=== PATIENT | female | born 1930 | race Caucasian/White ===

== ENCOUNTER 2016-06-19 08:59 | Emergency (ER) | payer MEDICARE, BC ==
[2014-09-06 13:22] VITALS: BMI 25.0
[~2016-06-19 08:59] MED LIST: CELEBREX200 MG PO; ED-SPAZ0.125 MG PO; FENOFIBRATE134 MG PO; IMODIUM2 MG PO; MULTIPLE VITAMI1 TA1 PO; NEURONTIN600 MG PO; NORVASC5 MG PO; PRILOSEC20 MG PO; ULTRAM50 MG PO; VASOTEC2.5 MG PO; VASOTEC5 MG; VASOTEC5 MG PO; VITAMIN D5000 UNIT PO
== END 2016-06-19 10:45 | disposition home or self-care (01) ==
LOC: D.ER 08:59
DX: S01.81XA Laceration without foreign body of other part of head, initial encounter (principal); W01.0XXA Fall on same level from slipping, tripping and stumbling without subsequent striking against object, initial encounter; Y93.89 Activity, other specified; Y92.019 Unspecified place in single-family (private) house as the place of occurrence of the external cause; S06.0X0A Concussion without loss of consciousness, initial encounter; I10 Essential (primary) hypertension

== ENCOUNTER 2016-07-07 14:33 | Inpatient (IN) | payer MEDICARE, BC ==
[~2016-07-07] VITALS: Ht 165.1 cm; Wt 52.7 kg
[2016-07-07 17:16] LABS: BASOPHILS 0.3 % (0-2); EOSINOPHILS 0.8 % (0-7); HEMATOCRIT 40.4 % (36.0-48.0); HEMOGLOBIN 12.7 g/dL (12-16); IMMATURE GRANULOCYTES 0.1 % (0-5); MCH 25.8 pg (26.0-34.0); MCHC 31.4 g/dL (31.0-37.0); MCV 82.1 fL (80.0-100.0); MEAN PLATELET VOLUME 9.4 fL (7.4-10.4); MONOCYTES 10.6 % (2-11); NEUTROPHILS 57.2 % (40-80); PLATELET COUNT 377 10x3/uL (130-400); RBC 4.92 10x6/uL (4.00-5.40); WBC 7.9 10x3/uL (4.8-10.8)
[2016-07-07] MEDS ORDERED: BAYER CHEWABLE81 MG PO (17:32)
[2016-07-07 17:33] VITALS: BP 135/84; Ht 165.1 cm; Wt 52.7 kg
[2016-07-07] MEDS ORDERED: ALEVE220 MG PO (17:38)
[2016-07-07] MEDS ORDERED: LOZOL1.25 MG PO (17:38)
[2016-07-07] MEDS ORDERED: LISINOPRIL5 MG PO (17:39)
[2016-07-07] MEDS ORDERED: TROSPIUM CHLORI60 MG PO (17:40)
[2016-07-07] MEDS ORDERED: K-TAB10 MEQ PO (17:41)
[2016-07-07] MEDS ORDERED: MELATONIN10 M1 PO (17:42)
[2016-07-07] MEDS ORDERED: PREMARIN45 GM VG (17:43)
[2016-07-07 17:51] LABS: ALBUMIN 4.1 g/dL (3.4-5.0); ANION GAP 12.6 mmol/L (8-16); BILIRUBIN - TOTAL 0.41 mg/dL (0.2-1.3); CALCIUM 9.8 mg/dL (8.5-10.1); CARBON DIOXIDE 27.9 mmol/L (21.0-32.0); POTASSIUM - SERUM 4.5 mmol/L (3.5-5.1); PROTEIN - SERUM 7.6 g/dL (6.4-8.2)
[2016-07-08] VITALS: BP 139/78
[2016-07-08 04:00] VITALS: BP 111/56
[2016-07-08 04:56] LABS: BASOPHILS 0.1 % (0-2); EOSINOPHILS 2.1 % (0-7); HEMATOCRIT 38.3 % (36.0-48.0); HEMOGLOBIN 12.2 g/dL (12-16); IMMATURE GRANULOCYTES 0.1 % (0-5); LYMPHOCYTES 31.3 % (15-50); MCH 25.7 pg (26.0-34.0); MCHC 31.9 g/dL (31.0-37.0); MCV 80.6 fL (80.0-100.0); MEAN PLATELET VOLUME 9.4 fL (7.4-10.4); MONOCYTES 12.3 % (2-11); NEUTROPHILS 54.1 % (40-80); PLATELET COUNT 384 10x3/uL (130-400); RBC 4.75 10x6/uL (4.00-5.40); RDW 14.1 % (11.5-14.5); WBC 7.5 10x3/uL (4.8-10.8)
[2016-07-08 05:20] LABS: ALBUMIN 3.6 g/dL (3.4-5.0); BILIRUBIN - TOTAL 0.38 mg/dL (0.2-1.3); CALCIUM 9.6 mg/dL (8.5-10.1); CARBON DIOXIDE 26.9 mmol/L (21.0-32.0); POTASSIUM - SERUM 3.9 mmol/L (3.5-5.1); PROTEIN - SERUM 7.3 g/dL (6.4-8.2)
[2016-07-08 08:02] VITALS: BP 146/69
[2016-07-08 12:28] VITALS: BP 147/84
[2016-07-08 15:59] VITALS: BP 124/60
[2016-07-08 19:00] VITALS: BP 102/69
[2016-07-09 04:00] VITALS: BP 119/61
[2016-07-09 08:17] VITALS: BP 117/53
[2016-07-09] MEDS ORDERED: DECADRON4 MG PO (10:10)
== END 2016-07-09 13:32 | disposition home or self-care (01) | DRG 87 ==
LOC: D.CT 14:33 → D.MS 16:17 → OBSVTIME 16:18 → D.MS 07-08 13:33
PROVIDERS: ADMIT Family Medicine
DX: S06.5X0A Traumatic subdural hemorrhage without loss of consciousness, initial encounter (principal); W19.XXXA Unspecified fall, initial encounter; I10 Essential (primary) hypertension; R51 Headache

== ENCOUNTER 2016-07-20 10:43 | Observation (INO) | payer MEDICARE, BC ==
[~2016-07-20] VITALS: Ht 165.1 cm; Wt 52.7 kg
[~2016-07-20 10:43] MED LIST changes: +ALEVE220 MG PO; +BAYER CHEWABLE81 MG PO; +DECADRON4 MG PO; +K-TAB10 MEQ PO; +LISINOPRIL5 MG PO; +LOZOL1.25 MG PO; +MELATONIN10 M1 PO; +PREMARIN45 GM VG; +TROSPIUM CHLORI60 MG PO
--- NOTE | 2016-07-20 12:25 | NUR ---
RECEIVED TO ROOM 2236 AT THIS TIME FROM 'S OFFICE VIA WHEELCHAIR. IV SITED TO PT'S LEFT HAND X3 ATTEMPTS. ASSESSMENT AND HISTORY OBTAINED PER FLOWSHEET. PT NPO AT THIS TIME UNTIL BUSINESS ACCOUNT LEADER ASSESSES PATIENT. ORIENTED PT TO ROOM AND CALL LIGHT. DENIES QUESTIONS OR CONCERNS. DENIES PAIN. ALERT AND ORIENTED X4. WILL CONTINUE WITH PLAN OF CARE.
[2016-07-20 13:13] VITALS: BP 175/89; Ht 165.1 cm; Wt 52.7 kg
--- NOTE | 2016-07-20 13:43 | NUR ---
IV ACCESS-20 GAUGE INSERTED IN LEFT HAND FOR ACCESS. AAYUSH BARRERA RN
[2016-07-20] MEDS ORDERED: MEDROL DOSE PACK4 MG PO (16:08)
--- NOTE | 2016-07-20 16:36 | NUR ---
DISCHARGE INSTRUCTIONS REVIEWED AND IV TO LEFT HAND D/C WITH CATH TIP INTACT. DENIES QUESTIONS REGARDING D/C PAPERWORK OR FOLLOW UP APPOINTMENTS. WILL D/C HOME WHEN SON COME TO PROVIDE A RIDE.
--- NOTE | 2016-07-20 16:40 | NUR ---
MEDROL DOSE PACK CALLED IN TO [facility], . SPOKE WITH YAW, PHARMACIST AT THIS TIME.
[2016-07-20 17:02] VITALS: BP 143/76
== END 2016-07-20 17:57 | disposition home or self-care (01) ==
LOC: D.CT 10:43 → D.MS 12:01 → OBSVTIME 12:02 → D.CT 15:30 → D.MS 17:57
PROVIDERS: ADMIT Family Medicine
DX: S06.5X0A Traumatic subdural hemorrhage without loss of consciousness, initial encounter (principal)

== ENCOUNTER → 2016-07-30 13:09 | Outpatient (CLI) | payer MEDICARE, BC ==
[2016-07-20 13:13] VITALS: BMI 19.3
[~2016-07-30 13:09] MED LIST changes: +MEDROL DOSE PACK4 MG PO
== END | disposition home or self-care (01) ==
LOC: D.CT 13:09
DX: S06.5X0A Traumatic subdural hemorrhage without loss of consciousness, initial encounter (principal)

== ENCOUNTER 2016-08-01 11:41 | Emergency (ER) | payer MEDICARE, BC ==
[2016-07-20 13:13] VITALS: BMI 19.3
== END 2016-08-01 13:51 | disposition home or self-care (01) ==
LOC: D.ER 11:41
DX: S06.5X0A Traumatic subdural hemorrhage without loss of consciousness, initial encounter (principal); X58.XXXA Exposure to other specified factors, initial encounter; Y93.89 Activity, other specified; Y92.89 Other specified places as the place of occurrence of the external cause; I10 Essential (primary) hypertension

== ENCOUNTER 2016-09-16 16:45 | Inpatient (IN) | payer MEDICARE, BC ==
[~2016-09-16] VITALS: Ht 165.1 cm; Wt 65.8 kg
[2016-09-16] MEDS ORDERED: BAYER CHEWABLE81 MG PO (17:12)
[2016-09-16] MEDS ORDERED: LISINOPRIL5 MG PO (17:13)
[2016-09-16] MEDS ORDERED: PRESERVISION AR1 CAP PO (17:15)
[2016-09-16] MEDS ORDERED: BIOTIN5 MG PO (17:15)
[2016-09-16] MEDS ORDERED: TYLENOL PM1 TAB PO (17:16)
[2016-09-16 17:17] VITALS: BP 136/63; BMI 24.1
--- NOTE | 2016-09-16 17:24 | NUR ---
PT ADMITTED TO FLOOR ALERT AND ORIENTED VS ARE WNL WITH EXCEPTION OF HR 111. PT IS REQUESTING TO BE A DNR. WILL GET DNR SHEET TO BE SIGNED BY DR CARRASCO.
[2016-09-16 17:55] LABS: BASOPHILS 0.2 % (0-2); EOSINOPHILS 0.4 % (0-7); HEMATOCRIT 41.5 % (36.0-48.0); HEMOGLOBIN 13.4 g/dL (12-16); LYMPHOCYTES 8.5 % (15-50); MCH 27.2 pg (26.0-34.0); MCHC 32.3 g/dL (31.0-37.0); MCV 84.2 fL (80.0-100.0); MEAN PLATELET VOLUME 8.9 fL (7.4-10.4); MONOCYTES 7.7 % (2-11); NEUTROPHILS 82.2 % (40-80); RBC 4.93 10x6/uL (4.00-5.40); WBC 12.5 10x3/uL (4.8-10.8)
[2016-09-16 18:04] LABS: PLATELET COUNT 158 10x3/uL (130-400)
--- NOTE | 2016-09-16 18:20 | NUR ---
ATTEMPTED TO SITE PT PIV X2 STICKS UNSUCCESSFUL. ONOFRE VALENTINO WILL ATTEMPT TO SITE
[2016-09-16 18:30] LABS: ALBUMIN 2.8 g/dL (3.4-5.0); ANION GAP 16.1 mmol/L (8-16); BILIRUBIN - TOTAL 0.3 mg/dL (0.2-1.3); CALCIUM 9.3 mg/dL (8.5-10.1); CARBON DIOXIDE 24.9 mmol/L (21.0-32.0); CREATININE - SERUM 0.9 mg/dL (0.6-1.3); PROTEIN - SERUM 6.4 g/dL (6.4-8.2)
--- NOTE | 2016-09-16 18:35 | NUR ---
ONOFRE SITED PT TO LEFT FA 22G X1 STICK. IV FLUIDS RUNNING WITHOUT ANY PROBLEMS
--- NOTE | 2016-09-16 20:39 | NUR ---
RESUMED CARE OF PT, LYING IN BED RESPIRATIONS EVEN AND UNLABORED ON ROOM AIR. LEFT FOREARM INFUSING NS @ 125. 92 SR ON TELEMETRY. 16 [place] CESAR INSERTED USING STERILE TECHNIQUE. 400CC OF DARK YELLOW URINE OUT. NO FURTHER NEEDS AT THIS TIME. CALL LIGHT IN REACH. SEE NURSE ASSESSMENT. WILL CONTINUE TO MONITOR.
[2016-09-16 21:13] LABS: APPEARANCE CLEAR (CLEAR); BILIRUBIN NEGATIVE (NEGATIVE); COLOR YELLOW (YELLOW); GLUCOSE NEGATIVE (NEGATIVE); KETONE NEGATIVE (NEGATIVE); LEUKOCYTE ESTERASE NEGATIVE (NEGATIVE); NITRITE NEGATIVE (NEGATIVE); PROTEIN NEGATIVE (NEGATIVE); UROBILINOGEN NORMAL (NORMAL)
[2016-09-16 21:14] LABS: BACTERIA FEW /hpf (NONE SEEN); EPITHELIAL CELLS OCC /hpf (0-5); RED CELLS - URINE 0-5 /hpf (0-5); WHITE CELLS - URINE OCC /hpf (0-5)
[2016-09-16 23:32] VITALS: BP 100/57
--- NOTE | 2016-09-17 01:34 | NUR ---
CALL LIGHT IN REACH, WILL CONTINUE WITH PLAN OF CARE.
[2016-09-17 05:19] LABS: BASOPHILS 0.1 % (0-2); EOSINOPHILS 0.7 % (0-7); HEMATOCRIT 36.3 % (36.0-48.0); HEMOGLOBIN 11.5 g/dL (12-16); IMMATURE GRANULOCYTES 0.9 % (0-5); LYMPHOCYTES 12.1 % (15-50); MCH 26.6 pg (26.0-34.0); MCHC 31.7 g/dL (31.0-37.0); MCV 83.8 fL (80.0-100.0); MEAN PLATELET VOLUME 9.2 fL (7.4-10.4); MONOCYTES 8.5 % (2-11); NEUTROPHILS 77.7 % (40-80); PLATELET COUNT 181 10x3/uL (130-400); RBC 4.33 10x6/uL (4.00-5.40); WBC 10.6 10x3/uL (4.8-10.8)
[2016-09-17 05:49] LABS: ALBUMIN 2.1 g/dL (3.4-5.0); ALKALINE PHOSPHATASE 65 U/L (46-116); ALT (SGPT) 19 U/L (10-68); BILIRUBIN - TOTAL 0.45 mg/dL (0.2-1.3); CALC OSMOLALITY 260 mosm/kg (275-300); CALCIUM 8.2 mg/dL (8.5-10.1); CARBON DIOXIDE 30.5 mmol/L (21.0-32.0); CHLORIDE - SERUM 95 mmol/L (98-107); CREATININE - SERUM 0.7 mg/dL (0.6-1.3); GLUCOSE 100 mg/dL (74-106); MAGNESIUM - SERUM 1.5 mg/dL (1.8-2.4); PHOSPHOROUS 2.4 mg/dL (2.5-4.9); POTASSIUM - SERUM 4.2 mmol/L (3.5-5.1); PROTEIN - SERUM 5.9 g/dL (6.4-8.2); SODIUM 130 mmol/L (136-145); eGFR NON AFRICAN AMERICAN 84 mL/min (90-120)
[2016-09-17 05:50] LABS: UREA NITROGEN 13 mg/dL (7-18)
[2016-09-17 06:24] VITALS: BP 138/73
--- NOTE | 2016-09-17 07:30 | NUR ---
RECEIVED PT IN BED AAOX4 RESP UNLABORED NAD NOTED
[2016-09-17 08:00] VITALS: BP 121/62
[2016-09-17 12:00] VITALS: BP 135/62
--- NOTE | 2016-09-17 14:00 | NUR ---
PT REFUSED SCDs AT THIS TIME
[2016-09-17 16:00] VITALS: BP 107/57
[2016-09-17 20:00] VITALS: BP 115/58
--- NOTE | 2016-09-17 20:13 | NUR ---
RESUMED CARE OF PT, LYING IN BED RESPIRATIONS EVEN AND UNLABORED ON ROOM AIR. [address] ST ON TELEMETRY. LEFT FOREARM INFUSING NS @ 125. CESAR TO GRAVITY. NO NEEDS VOICED AT THIS TIME. WILL CONTINUE TO MONITOR. SEE NURSE ASSESSMENT. CALL LIGHT IN REACH.
[2016-09-18] VITALS: BP 119/60
[2016-09-18 04:00] VITALS: BP 126/63
--- NOTE | 2016-09-18 04:52 | NUR ---
EXECUTIVE WELLNESS PROGRAMS DIRECTOR AT BEDSIDE TO OBTAIN VITALS, CALL LIGHT IN REACH. WILL CONTINUE WITH PLAN OF CARE.
[2016-09-18 04:57] LABS: BASOPHILS 0.2 % (0-2); EOSINOPHILS 0.6 % (0-7); HEMATOCRIT 34.8 % (36.0-48.0); IMMATURE GRANULOCYTES 0.8 % (0-5); LYMPHOCYTES 12.6 % (15-50); MCH 26.6 pg (26.0-34.0); MCHC 31.6 g/dL (31.0-37.0); MCV 84.1 fL (80.0-100.0); MEAN PLATELET VOLUME 8.9 fL (7.4-10.4); MONOCYTES 9.8 % (2-11); PLATELET COUNT 176 10x3/uL (130-400); RBC 4.14 10x6/uL (4.00-5.40); RDW 17.2 % (11.5-14.5); WBC 11.9 10x3/uL (4.8-10.8)
[2016-09-18 05:08] LABS: ALBUMIN 1.9 g/dL (3.4-5.0); ALKALINE PHOSPHATASE 65 U/L (46-116); ALT (SGPT) 16 U/L (10-68); BILIRUBIN - TOTAL 0.49 mg/dL (0.2-1.3); CALC OSMOLALITY 264 mosm/kg (275-300); CALCIUM 7.9 mg/dL (8.5-10.1); CARBON DIOXIDE 26.9 mmol/L (21.0-32.0); CHLORIDE - SERUM 98 mmol/L (98-107); CREATININE - SERUM 0.7 mg/dL (0.6-1.3); GLUCOSE 115 mg/dL (74-106); POTASSIUM - SERUM 3.9 mmol/L (3.5-5.1); PROTEIN - SERUM 5.1 g/dL (6.4-8.2); SODIUM 132 mmol/L (136-145); UREA NITROGEN 10 mg/dL (7-18); eGFR NON AFRICAN AMERICAN 84 mL/min (90-120)
--- NOTE | 2016-09-18 07:30 | NUR ---
DR CARRASCO HERE TO SEE PT AAOX4 RESP UNLABORED NAD NOTED
[2016-09-18 08:07] VITALS: BP 122/65
--- NOTE | 2016-09-18 10:13 | NUR ---
Patient Name: DILLON DUKES Admission Status: Urgent Accout number: [id number] Admission Date: 09-16-2016 : 1930 Admission Diagnosis: Attending: SERJIO Current LOS: 2 Anticipated DC Date: 09-19-2016 Planned Disposition: [facility] Facility Primary Insurance: MEDICARE A & B Discharge Planning Comments: CM MET WITH PATIENT TO DISCUSS DISCHARGE PLANNING NEEDS. IT WAS EXPLAINED TO THE PATIENT THAT DR CARRASCO HAD PUT IN AN ORDER TO SEE ABOUT GETTING THE PATIENT INTO [facility], PER HER CHOICE. SHE HAS AGREED WITH THIS. SHE STATED THAT SHE RESIDES AT [facility] WITH HER SPOUSE AND IS PLANNING TO RETURN THERE WHEN SHE IS STRONGER. SE STATED THAT SHE HAS A 3 WHEEL WALKER AT HOME, BUT NO OTHER EQUIPMENT. SHE STATE THAT HER HAS SEVERAL PIECES OF EQUIPMENT, INCLUDING OXYGEN. PT IS SOB WHILE ASSESSMENT IS BEING COMPLETED AND REQUIRING OXYGEN DURING HER STAY HERE, WILL FOLLOW AND SEE IF SHE WILL NEED A WALK TEST BEFORE DISCHARGE. PATIENT DENIES ANY FURTHER NEEDS. CM WILL CONTINUE TO FOLLOW. Fiberglass Finisher: Neena Durán Appended by Neena Durán on 09/18/2016 10:24: SPOKE WITH TIA WITH [facility]. INFORMATION FAXED. WILL WAIT FOR RETURN CALL IN REGARDS TO ACCEPTANCE. PER DR CARRASCO'S REQUEST, I ASKED IF THEY WOULD DO AN ADMISSION ON WEDNESDAY. SHE STATED THAT THEY PREFER NOT TO , BUT WILL IF THEY NEED TO. THIS WILL BE RELAYED TO DR CARRASCO. Is the patient Alert and Oriented? Yes * How many steps to enter\exit or inside your home? 0 * PCP DR CARRASCO * Pharmacy [facility] * Preadmission Environment Home with Family * Equipment Walker * List name and contact numbers for known caregivers / representatives who currently or will assist patient after discharge: CARSON KRISTEN DUKES, SPOUSE, ANATOLIY DUKES, SON, . * Additional services required to return to the preadmission environment? Yes * Can the patient safely return to the preadmission environment? No * Has this patient been hospitalized within the prior 30 days at any hospital? No
--- NOTE | 2016-09-18 11:25 | NUR ---
HAVE SPOKE WITH TIA AT [facility]. THE PATIENT HAS BEEN ACCEPTD FOR ADMISSION. SHE STATED THAT THEY COULD TAKE HER OVER THE WEEKEND LONG THEY CAN RECEIVE HER IN THE MORNING. THIS INFORMATION HAS BEEN RELAYED TO THE PATIENT AND WILL LET DR CARRASCO KNOW.
[2016-09-18 12:06] VITALS: BP 129/62
[2016-09-18 13:41] VITALS: Ht 165.1 cm; Wt 65.8 kg
[2016-09-18 14:44] VITALS: BP 130/64
[2016-09-18 20:00] VITALS: BP 132/64
[2016-09-19] VITALS: BP 100/61
[2016-09-19 04:00] VITALS: BP 129/59
[2016-09-19 05:32] LABS: BASOPHILS 0.1 % (0-2); EOSINOPHILS 0.9 % (0-7); HEMATOCRIT 34.4 % (36.0-48.0); IMMATURE GRANULOCYTES 0.5 % (0-5); LYMPHOCYTES 11.4 % (15-50); MCH 26.7 pg (26.0-34.0); MCV 83.5 fL (80.0-100.0); MEAN PLATELET VOLUME 9.3 fL (7.4-10.4); MONOCYTES 9.2 % (2-11); NEUTROPHILS 77.9 % (40-80); RBC 4.12 10x6/uL (4.00-5.40); RDW 16.8 % (11.5-14.5); WBC 13.1 10x3/uL (4.8-10.8)
[2016-09-19 05:40] LABS: PLATELET COUNT 222 10x3/uL (130-400)
[2016-09-19 05:48] LABS: ALBUMIN 1.9 g/dL (3.4-5.0); ALKALINE PHOSPHATASE 80 U/L (46-116); ALT (SGPT) 17 U/L (10-68); CALC OSMOLALITY 256 mosm/kg (275-300); CALCIUM 8.6 mg/dL (8.5-10.1); CHLORIDE - SERUM 95 mmol/L (98-107); CREATININE - SERUM 0.6 mg/dL (0.6-1.3); GLUCOSE 110 mg/dL (74-106); POTASSIUM - SERUM 4.1 mmol/L (3.5-5.1); PROTEIN - SERUM 5.8 g/dL (6.4-8.2); SODIUM 128 mmol/L (136-145); UREA NITROGEN 9 mg/dL (7-18); eGFR NON AFRICAN AMERICAN > 90 mL/min (90-120)
[2016-09-19 08:10] VITALS: BP 115/69
--- NOTE | 2016-09-19 09:35 | NUR ---
TELEMETRY SR. RESP UL ON 2L NC. IV PATENT. CALL LIGHT IN REACH. WILL CONT. PLAN OF CARE.
--- NOTE | 2016-09-19 10:27 | NUR ---
UP TO CHAIR WITH PHYSICIAN ASSIST.
[2016-09-19 11:27] VITALS: BP 143/73
--- NOTE | 2016-09-19 12:49 | NUR ---
URINE SPECIMEN COLLECTED AND TAKEN TO [place] FOR UA. WILL MONITOR.
[2016-09-19 13:20] LABS: APPEARANCE CLEAR (CLEAR); BILIRUBIN NEGATIVE (NEGATIVE); COLOR YELLOW (YELLOW); GLUCOSE NEGATIVE (NEGATIVE); KETONE NEGATIVE (NEGATIVE); LEUKOCYTE ESTERASE TRACE (NEGATIVE); NITRITE NEGATIVE (NEGATIVE); PH 5.5 (5.0-6.0); PROTEIN NEGATIVE (NEGATIVE); SPECIFIC GRAVITY 1.015 (1.005-1.020); UROBILINOGEN NORMAL (NORMAL)
[2016-09-19 13:25] LABS: BACTERIA FEW /hpf (NONE SEEN); EPITHELIAL CELLS OCC /hpf (0-5); RED CELLS - URINE 0-5 /hpf (0-5); URIC ACID CRYSTALS OCC /hpf (NONE SEEN); WHITE CELLS - URINE 0-5 /hpf (0-5)
--- NOTE | 2016-09-19 13:44 | NUR ---
AMBULATES HALLWAY WITH PT ASSIST.
[2016-09-19 15:16] VITALS: BP 140/63
[2016-09-19 20:00] VITALS: BP 121/57
--- NOTE | 2016-09-19 22:14 | NUR ---
PT RESTING WELL WITHOUT C/O OR DISTRESS NOTED. DAUGHTER IN ROOM WITH PT AT THIS TIME. CALL LIGHT WITHIN REACH. WILL MONITOR.
[2016-09-20] VITALS: BP 121/73
--- NOTE | 2016-09-20 03:30 | NUR ---
PT RESTING WELL WITHOUT C/O OR DISTRESS NOTED. CALL LIGHT WITHIN REACH.
[2016-09-20 04:00] VITALS: BP 120/65
[2016-09-20 05:13] LABS: BASOPHILS 0.1 % (0-2); EOSINOPHILS 0.8 % (0-7); HEMATOCRIT 32.7 % (36.0-48.0); HEMOGLOBIN 10.5 g/dL (12-16); IMMATURE GRANULOCYTES 0.7 % (0-5); MCH 26.6 pg (26.0-34.0); MCHC 32.1 g/dL (31.0-37.0); MCV 82.8 fL (80.0-100.0); MEAN PLATELET VOLUME 9.7 fL (7.4-10.4); MONOCYTES 9.3 % (2-11); NEUTROPHILS 79.1 % (40-80); PLATELET COUNT 214 10x3/uL (130-400); RBC 3.95 10x6/uL (4.00-5.40); RDW 16.6 % (11.5-14.5); WBC 11.9 10x3/uL (4.8-10.8)
[2016-09-20 05:33] LABS: ALBUMIN 1.6 g/dL (3.4-5.0); ALKALINE PHOSPHATASE 87 U/L (46-116); ALT (SGPT) 17 U/L (10-68); BILIRUBIN - DIRECT 0.07 mg/dL (0.00-0.30); BILIRUBIN - INDIRECT 0.38 mg/dL (0.00-1.00); BILIRUBIN - TOTAL 0.45 mg/dL (0.2-1.3); CALC OSMOLALITY 258 mosm/kg (275-300); CALCIUM 7.8 mg/dL (8.5-10.1); CARBON DIOXIDE 26.3 mmol/L (21.0-32.0); CHLORIDE - SERUM 96 mmol/L (98-107); CREATININE - SERUM 0.5 mg/dL (0.6-1.3); GLUCOSE 103 mg/dL (74-106); POTASSIUM - SERUM 4.1 mmol/L (3.5-5.1); SODIUM 130 mmol/L (136-145); UREA NITROGEN 8 mg/dL (7-18); eGFR NON AFRICAN AMERICAN > 90 mL/min (90-120)
--- NOTE | 2016-09-20 08:02 | NUR ---
US ABD DONE AT BS.
[2016-09-20 08:16] VITALS: BP 129/64
--- NOTE | 2016-09-20 10:29 | NUR ---
AMBULATES HALLWAY WITH PT ASSIST.
[2016-09-20 11:59] VITALS: BP 144/72
--- NOTE | 2016-09-20 14:30 | NUR ---
20 GAUGE IV INSTERTED PER MD ORDERS TO RIGHT AC X1 STICK. 10ML NS FLUSHED PT TOLERATED WELL. LEFT FOREARM IV DC'D CATHETER TIP INTACT, PT TOLERATED WELL. HARMONY RN ROBERT INSTRUCTOR PRESENT
[2016-09-20 16:05] VITALS: BP 129/72
[2016-09-20 19:00] VITALS: BP 147/78
--- NOTE | 2016-09-20 19:33 | NUR ---
RESUMED CARE OF PT, UP IN RECLINER RESPIRATIONS EVEN AND UNLABORED ON 2LPM VIA NC. [address] ON TELEMETRY. LEFT AC INFUSING NS @ 125. CESAR TO GRAVITY. CALL LIGHT IN REACH. SEE NURSE ASSESSMENT. WILL CONTINUE TO MONITOR.
--- NOTE | 2016-09-21 01:05 | NUR ---
CALL LIGHT IN REACH, WILL CONTINUE WITH PLAN OF CARE.
[2016-09-21 04:00] VITALS: BP 125/62
[2016-09-21 05:36] LABS: BASOPHILS 0.1 % (0-2); EOSINOPHILS 1.2 % (0-7); HEMATOCRIT 30.3 % (36.0-48.0); HEMOGLOBIN 9.9 g/dL (12-16); IMMATURE GRANULOCYTES 0.8 % (0-5); MCHC 32.7 g/dL (31.0-37.0); MCV 82.8 fL (80.0-100.0); MEAN PLATELET VOLUME 8.7 fL (7.4-10.4); MONOCYTES 8.1 % (2-11); NEUTROPHILS 79.8 % (40-80); PLATELET COUNT 246 10x3/uL (130-400); RBC 3.66 10x6/uL (4.00-5.40); RDW 16.6 % (11.5-14.5); WBC 9.7 10x3/uL (4.8-10.8)
[2016-09-21 05:55] LABS: CALC OSMOLALITY 259 mosm/kg (275-300); CALCIUM 8.1 mg/dL (8.5-10.1); CARBON DIOXIDE 27.2 mmol/L (21.0-32.0); CHLORIDE - SERUM 97 mmol/L (98-107); CREATININE - SERUM 0.5 mg/dL (0.6-1.3); GLUCOSE 118 mg/dL (74-106); POTASSIUM - SERUM 3.6 mmol/L (3.5-5.1); SODIUM 130 mmol/L (136-145); UREA NITROGEN 8 mg/dL (7-18); eGFR NON AFRICAN AMERICAN > 90 mL/min (90-120)
--- NOTE | 2016-09-21 06:29 | NUR ---
NO CHANGES FROM PREVIOUS ASSESSMENT, ASSISSTED ONTO BEDPAN. 92 SR ON TELEMETRY
--- NOTE | 2016-09-21 07:30 | NUR ---
RECEIVED PT IN BED AAOX4 GENERALIZED WEAKNESS NOTED RESP UNLABORED PT DENIES ANY NEEDS AT THIS TIME
[2016-09-21] MEDS ORDERED: OMNICEF300 MG PO (07:51)
[2016-09-21 08:00] VITALS: BP 154/74
--- NOTE | 2016-09-21 08:07 | NUR ---
PATIENT WITH DISCHARGE ORDERS TODAY. SPOKE WITH MARY AT [facility]. SHE STATED SHE WILL BE THE ONE TO CALL REPORT TO AT [phone]. SHE ALSO STATED THAT TRANSPORT WILL BE HER AROUND 1200 TO PICK HER UP. WILL RELAY THIS TO THE NURSE.
--- NOTE | 2016-09-21 10:13 | NUR ---
Patient Name: DILLON DUKES Encounter No: [id number] : 1930 Primary Insurance: MEDICARE A & B Anticipated DC Date: 09-19-2016 Planned Disposition: Shelter Facility External Planned Provider: [facility], MEDIC[facility] REH[facility] BED DCP follow-up note: CM RECEIVED DISCHARGE ORDER, SPOKE TO PT AND DAUGHTER IN ROOM, BOTH IN AGREEMENT WITH DISCHARGE PLAN OF REHAB AT [place]. IMPORTANT MESSAGE FROM MEDICARE PROVIDED AND EXPLAINED. CM NOTIFIED PT AND DAUGHTER OF [employer] SCHEDULED FOR AROUND NOON TODAY. NURSE REPORT TO BE CALLED TO KISHAN AT [facility] AT [phone]. [facility] WILL BE HERE AROUND 1200 TO PICK PT UP. Ángel Jordan, CASE MANAGEMENT
--- NOTE | 2016-09-21 12:40 | NUR ---
REVIEWED DISCHARGE INSTRUCTIONS FOR DISCHARGE TO [facility] DCD RAC SALINE LOCK WITH 20 GA IV CATHETER INTACT SITE FREE OF REDNESS OR EDEMA PT DISCHARGED IN STABLE CONDITION WITH ALL PERSONAL BELONGINGS VIA W/C
== END 2016-09-21 12:40 | DRG 640 ==
LOC: D.M2 16:45
PROVIDERS: Family Medicine; ADMIT Family Medicine
DX: E87.1 Hypo-osmolality and hyponatremia (principal); J18.9 Pneumonia, unspecified organism; R53.1 Weakness; E86.0 Dehydration; K59.00 Constipation, unspecified; R00.0 Tachycardia, unspecified

== ENCOUNTER 2017-04-11 11:26 | Emergency (ER) | payer MEDICARE, BC ==
[2016-09-18 13:41] VITALS: BMI 24.1
[~2017-04-11 11:26] MED LIST changes: +BIOTIN5 MG PO; +OMNICEF300 MG PO; +PRESERVISION AR1 CAP PO; +TYLENOL PM1 TAB PO
[2017-04-11 12:22] LABS: BASOPHILS 0.1 % (0-2); EOSINOPHILS 1.2 % (0-7); HEMATOCRIT 34.8 % (36.0-48.0); HEMOGLOBIN 10.8 g/dL (12-16); IMMATURE GRANULOCYTES 0.2 % (0-5); LYMPHOCYTES 23.1 % (15-50); MCH 24.8 pg (26.0-34.0); MCV 79.8 fL (80.0-100.0); MEAN PLATELET VOLUME 9.4 fL (7.4-10.4); MONOCYTES 9.2 % (2-11); NEUTROPHILS 66.2 % (40-80); PLATELET COUNT 236 10x3/uL (130-400); RBC 4.36 10x6/uL (4.00-5.40); RDW 16.6 % (11.5-14.5); WBC 8.1 10x3/uL (4.8-10.8)
[2017-04-11 12:35] LABS: ALBUMIN 3.2 g/dL (3.4-5.0); ANION GAP 13.3 mmol/L (8-16); BILIRUBIN - TOTAL 0.32 mg/dL (0.2-1.3); CALCIUM 8.9 mg/dL (8.5-10.1); CREATININE - SERUM 1.2 mg/dL (0.6-1.3); POTASSIUM - SERUM 5.3 mmol/L (3.5-5.1); PROTEIN - SERUM 6.5 g/dL (6.4-8.2)
== END 2017-04-11 16:10 | disposition home or self-care (01) ==
LOC: D.ER 11:26
PROVIDERS: Emergency Medicine
DX: E87.1 Hypo-osmolality and hyponatremia (principal); J20.9 Acute bronchitis, unspecified; I10 Essential (primary) hypertension

== ENCOUNTER → 2017-09-21 13:51 | Outpatient (CLI) | payer MEDICARE, BC ==
[2016-09-18 13:41] VITALS: BMI 24.1
== END | disposition home or self-care (01) ==
LOC: D.MRI 13:51
DX: G44.229 Chronic tension-type headache, not intractable (principal); I62.00 Nontraumatic subdural hemorrhage, unspecified

== ENCOUNTER 2017-10-09 15:07 | Emergency (ER) | payer MEDICARE, BC ==
[~2017-10-09] VITALS: Ht 165.1 cm; Wt 71.4 kg
[2017-10-09 15:08] VITALS: Ht 165.1 cm; Wt 71.4 kg
[2017-10-09 16:13] LABS: BASOPHILS 0.2 % (0-2); EOSINOPHILS 1.1 % (0-7); HEMATOCRIT 36.7 % (36.0-48.0); HEMOGLOBIN 11.6 g/dL (12-16); IMMATURE GRANULOCYTES 0.1 % (0-5); LYMPHOCYTES 26.2 % (15-50); MCH 24.9 pg (26.0-34.0); MCHC 31.6 g/dL (31.0-37.0); MCV 78.9 fL (80.0-100.0); MEAN PLATELET VOLUME 9.4 fL (7.4-10.4); MONOCYTES 8.5 % (2-11); NEUTROPHILS 63.9 % (40-80); RBC 4.65 10x6/uL (4.00-5.40); RDW 15.3 % (11.5-14.5); WBC 9.8 10x3/uL (4.8-10.8)
[2017-10-09 16:14] LABS: PLATELET COUNT 383 10x3/uL (130-400)
[2017-10-09 16:20] LABS: INR 0.98 (0.85-1.17); PROTIME 12.6 SECONDS (11.6-15.0)
[2017-10-09 16:22] LABS: D-DIMER-QUANTITATIVE 0.99 ug/mLFEU (0.20-0.54)
[2017-10-09 16:29] LABS: ALBUMIN 3.9 g/dL (3.4-5.0); ALKALINE PHOSPHATASE 79 U/L (46-116); ALT (SGPT) 17 U/L (10-68); BILIRUBIN - TOTAL 0.33 mg/dL (0.2-1.3); CALC OSMOLALITY 269 mosm/kg (275-300); CALCIUM 9.6 mg/dL (8.5-10.1); CARBON DIOXIDE 23.7 mmol/L (21.0-32.0); CHLORIDE - SERUM 96 mmol/L (98-107); GLUCOSE 124 mg/dL (74-106); POTASSIUM - SERUM 3.7 mmol/L (3.5-5.1); PROTEIN - SERUM 7.6 g/dL (6.4-8.2); SODIUM 132 mmol/L (136-145); UREA NITROGEN 25 mg/dL (7-18); eGFR NON AFRICAN AMERICAN 55 mL/min (90-120)
[2017-10-09 16:52] LABS: AMYLASE - SERUM 39 U/L (25-115); C-REACTIVE PROTEIN 0.5 mg/dL (0.0-0.9); CKMB 1.3 U/L (0.0-3.6); CREATINE KINASE 51 UL (21-215); PRO BNP 186 pg/mL (0-450); THYROID STIMULATING HORMONE 1.93 uIU/mL (0.36-3.74); TROPONIN-I < 0.017 ng/mL (0.000-0.060)
[2017-10-09 17:34] LABS: APPEARANCE HAZY (CLEAR); BILIRUBIN NEGATIVE (NEGATIVE); COLOR YELLOW (YELLOW); GLUCOSE NEGATIVE (NEGATIVE); KETONE SMALL mg/dL (NEGATIVE); NITRITE NEGATIVE (NEGATIVE); PROTEIN NEGATIVE (NEGATIVE); RED CELLS - URINE 0-5 /hpf (0-5); SPECIFIC GRAVITY 1.015 (1.005-1.020); UROBILINOGEN NORMAL (NORMAL); WHITE CELLS - URINE 0-5 /hpf (0-5)
[2017-10-09 17:35] LABS: AMORPHOUS SEDIMENT <1+ /lpf (NONE SEEN); BACTERIA MODERATE /hpf (NONE SEEN)
[2017-10-09 22:12] VITALS: BP 137/76
== END 2017-10-09 22:15 | disposition other institution (70) ==
LOC: D.ER 15:07
PROVIDERS: Family Medicine
DX: K45.8 Other specified abdominal hernia without obstruction or gangrene (principal); R91.8 Other nonspecific abnormal finding of lung field; K59.00 Constipation, unspecified; K22.8 Other specified diseases of esophagus; R11.2 Nausea with vomiting, unspecified; I10 Essential (primary) hypertension; R00.0 Tachycardia, unspecified

== ENCOUNTER → 2018-06-28 09:36 | Outpatient (CLI) | payer MEDICARE, BC | END | disposition home or self-care (01) | LOC: D.CT 09:36 | DX: R10.9 Unspecified abdominal pain (principal) ==

== ENCOUNTER 2018-07-28 15:38 | Emergency (ER) | payer MEDICARE, BC ==
[~2018-07-28] VITALS: Ht 165.1 cm; Wt 70.5 kg
[2018-07-28 15:42] VITALS: BP 176/87; Ht 165.1 cm; Wt 70.5 kg
== END 2018-07-28 15:53 | disposition left against medical advice (07) ==
LOC: D.ER 15:38
DX: I10 Essential (primary) hypertension (principal)

== ENCOUNTER → 2019-09-28 14:06 | Outpatient (CLI) | payer MEDICARE, BC ==
[2018-07-28 15:42] VITALS: BMI 25.8
== END | disposition home or self-care (01) ==
LOC: D.CT 14:06
PROVIDERS: ATTEND Family Medicine
DX: R15.9 Full incontinence of feces (principal)